=== PATIENT | male | born 1980 | race Caucasian/White ===

== ENCOUNTER → 2018-01-19 | Outpatient (CLI) | payer OTHER ==
--- NOTE | 2018-01-19 13:15 | RAD ---
ABDOMEN COMPLETE History: Acute pancreatitis Comparison: None. Findings: Multiple sonographic images of the abdomen are submitted. Pancreas is not well-visualized due to bowel gas. Proximal abdominal aorta as well as common bile duct are also not well visualized. There is limited segmental visualization of the inferior vena cava. Right kidney measured 13 x 6.4 x 6.7 cm, very mild hydronephrosis. Mid and distal abdominal aortic caliber is within normal limits at about 1.9 cm. Spleen is enlarged at 14.4 cm. Left kidney measured 7.9 x 6.9 x 12.3 cm, no hydronephrosis. There is diffuse coarsening of the echotexture of liver. Right lobe liver measured 19.1 C longitudinal. Gallbladder is present without intraluminal abnormality, wall thickening, pericholecystic fluid. Impression: 1. There is hepatosplenomegaly. There is hepatic steatosis. 2. Exam is limited due to bowel gas. 3. There is very mild right hydronephrosis. Electronically signed by: Thai Appiah MD (01/19/2018 1:11 PM) [id number]
== END | disposition home or self-care (01) ==
LOC: US 12:15
PROVIDERS: ATTEND Hospitalist
DX: K76.0 Fatty (change of) liver, not elsewhere classified (principal); N13.39 Other hydronephrosis; R16.2 Hepatomegaly with splenomegaly, not elsewhere classified
CPT/HCPCS: 76700